=== PATIENT | female | born 1970 | race Caucasian/White ===

== ENCOUNTER 2016-09-30 10:05 | Emergency (ER) | payer BC ==
--- NOTE | 2016-09-30 10:40 | RAD ---
HISTORY: Right-sided weakness COMPARISONS: None TECHNIQUE: Multiple contiguous axial CT scans were obtained of the head without intravenous contrast. FINDINGS: HEMORRHAGE/INFARCT: There is no hemorrhage or acute infarct. MASSES/SHIFT: There is no mass or shift. EXTRA-AXIAL SPACES: There are no extra-axial fluid collections. SULCI AND VENTRICLES: The sulci and ventricles are normal in size and position for the patient's stated age. CEREBRUM: There are no focal parenchymal abnormalities. BRAINSTEM: There are no focal parenchymal abnormalities. CEREBELLUM: There are no focal parenchymal abnormalities. VESSELS: The vessels are grossly normal. PARANASAL SINUSES: The paranasal sinuses are clear. ORBITS: The orbits are unremarkable. BONES AND SOFT TISSUE: No bone or soft tissue abnormalities are noted. OTHER: None IMPRESSION: NO ACUTE INTRACRANIAL PATHOLOGY. PRELIMINARY FINDINGS WERE DISCUSSED WITH DR. MATOS IN THE EMERGENCY DEPARTMENT AT APPROXIMATELY 10:35 AM ON SEPTEMBER 30, 2016.
[2016-09-30 10:57] LABS: Hematocrit 43 % (35-47); Hemoglobin 13.9 g/dl (12.0-16.0); Mean Corpuscular HGB Conc 33 g/dl (31-36); Mean Corpuscular Hemoglobin 30 pg (27-31); Mean Corpuscular Volume 92 fL (80-97); Mean Platelet Volume 9 um3 (7.4-10.4); Red Blood Count 4.64 10^6/ul (4.0-5.4); Red Cell Distribution Width 13 % (10.5-15); White Blood Count 6.3 10^3/ul (3.5-10.8)
[2016-09-30 11:12] LABS: Albumin 4.4 g/dL (3.2-5.2); BUN/Creatinine Ratio 17.4 (8-20); Calcium 9.1 mg/dL (8.6-10.3); EGFR African American 91.8 (>60); EGFR Non-African American 71.4 (>60); Globulin 2.8 g/dL (2-4); HDL Cholesterol 58.8 mg/dL; Potassium 3.8 mmol/L (3.5-5.0); Total Bilirubin 0.5 mg/dL (0.2-1.0); Total Protein 7.2 g/dL (6.4-8.9)
[2016-09-30] MEDS ORDERED: Iohexol 350* (CONTRAST) 500 ML MDV IV ONE (11:27)
[2016-09-30 11:46] LABS: Urine Bilirubin Negative (Negative); Urine Glucose Negative (Negative); Urine Nitrite Negative (Negative)
--- NOTE | 2016-09-30 12:20 | RAD ---
HISTORY: Right upper extremity weakness COMPARISONS: Head CT dated September 30, 2016 TECHNIQUE: Multiple contiguous axial CT scans were obtained of the head and neck After the administration of nonionic intravenous contrast timed to the systemic arterial phase of contrast enhancement. Coronal and sagittal multiplanar reformations are submitted for review. Multiple 3-D maximum intensity projection reconstructions are also submitted for review. FINDINGS: CTA NECK: AORTIC ARCH: There is a normal three-vessel branching pattern of the aortic arch. There is no ostial or proximal stenosis of the cephalic great vessels. RIGHT VERTEBRAL ARTERY: The right vertebral artery is patent along its course, without stenosis. LEFT VERTEBRAL ARTERY: The left vertebral artery is patent along its course, without stenosis. DOMINANCE: The vertebral arteries are codominant. RIGHT COMMON CAROTID ARTERY: The right common carotid artery is patent. The right carotid bifurcation occurs at C4-C5 RIGHT INTERNAL CAROTID ARTERY: There is no right internal carotid artery stenosis by NASCET criteria. RIGHT EXTERNAL CAROTID ARTERY: The right external carotid artery is unremarkable. LEFT COMMON CAROTID ARTERY: The left common carotid artery is patent. The left carotid bifurcation occurs at C4-C5 LEFT INTERNAL CAROTID ARTERY: There is no left internal carotid artery stenosis by NASCET criteria. LEFT EXTERNAL CAROTID ARTERY: The left external carotid artery is unremarkable. VENOUS CIRCULATION: The venous system is unremarkable. SALIVARY GLANDS: The parotid glands, submandibular glands, sublingual glands are normal. NASAL CAVITY/NASOPHARYNX: The nasal cavity and nasopharynx are normal. ORAL CAVITY/OROPHARYNX: The oral cavity is obscured by streak artifact from dental amalgam. The visualized oral cavity and oropharynx are unremarkable. LARYNGEAL APPARATUS/HYPOPHARYNX: The laryngeal apparatus and hypopharynx are normal. UPPER AIRWAY/UPPER ESOPHAGUS: The visualized upper airway and esophagus are normal. LUNG APICES: The lung apices are clear. THYROID GLAND: The thyroid gland is normal. LYMPH NODES: There is no lymphadenopathy by size criteria. BONES AND SOFT TISSUES: There is straightening with reversal of the normal cervical lordosis CTA HEAD: INTRACRANIAL CIRCULATION: There is no aneurysm, vascular malformation, occlusion, or stenosis of the visualized intracranial circulation. The anterior communicating artery complex is clear. Bilateral posterior communicating arteries are identified. VENOUS CIRCULATION: The venous system is unremarkable. PERFUSION: There is no obvious parenchymal perfusion deficit. HEMORRHAGE/INFARCT: There is no hemorrhage or acute infarct. MASSES/SHIFT: There is no mass or shift. EXTRA-AXIAL SPACES: There are no extra-axial fluid collections. SULCI AND VENTRICLES: The sulci and ventricles are normal in size and position for the patient's stated age. CEREBRUM: There are no focal parenchymal abnormalities. BRAINSTEM: There are no focal parenchymal abnormalities. CEREBELLUM: There are no focal parenchymal abnormalities. PARANASAL SINUSES: The paranasal sinuses are clear. ORBITS: The orbits are unremarkable. BONES AND SOFT TISSUE: No bone or soft tissue abnormalities are noted. OTHER: There is no abnormal enhancement. IMPRESSION: 1. NO INTERNAL CAROTID ARTERY STENOSIS BY NASCET CRITERIA. 2. NO ANEURYSM, VASCULAR MALFORMATION, OCCLUSION, OR STENOSIS OF THE VISUALIZED INTRACRANIAL CIRCULATION. CPT II Codes: 3100F
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
[2016-09-30] MEDS ORDERED: ALPRAZolam TAB* 0.5 MG PO ONE (13:41)
[2016-09-30 14:47] VITALS: BP 126/81
--- NOTE | 2016-09-30 16:43 | ED ---
Lauren Brown Auryana, scribed for Greg Jung MD on 09/30/16 at 1019 . Neurological HPI - HPI Summary HPI Summary: 46 year old female presents with right arm weakness. Patient reports that this morning at 06:00 she had LUE weakness and couldn't tell what day it was. The weakness is now in her right arm and she is also lightheaded and has a headache. She is Gabapentin, but is not on any blood thinners. 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 - History of Current Complaint Stated Complaint: RIGHT SIDE WEAKNESS Time Seen by Provider: 09/30/16 10:15 Last Known Well Date: 09/30/16 06:00 Hx Obtained From: Patient Hx Last Menstrual Period: N/A Onset/Duration: Sudden Onset, Still Present Timing: Constant Onset Severity: Mild Current Severity: Mild Neurological Deficit Location: RUE - now, LUE - NURSE WOUND Headache Location: Diffuse (Right), Diffuse (Left) Character: Weak, Motor Weakness Associated Signs and Symptoms: Positive: Headache, Weakness, Lightheadness Similar Episode/Dx as: history of stroke 2 years ago - Allergy/Home Medications Allergies/Adverse Reactions: Allergies Allergy/AdvReac Type Severity Reaction Status Date / Time Latex Allergy Intermediate Rash, Verified 08/14/16 15:36 ITCHINESS Penicillin G Sodium Allergy Intermediate Rash Verified 08/14/16 15:36 Prednisone Allergy Anxiety Verified 08/14/16 15:36 ALL NARCOTICS Allergy Mild Headache Uncoded 08/14/16 15:36 Home Medications: Home Medications Gabapentin CAP(*) [Neurontin 300 CAP(*)] 300 mg PO QPM 09/30/16 [History Confirmed 09/30/16] Lidocaine PATCH 5%* [Lidoderm 5% Patch*] 1 patch TRANSDERM DAILY 09/30/16 [ History Confirmed 09/30/16] PMH/Surg Hx/FS Hx/Imm Hx Endocrine/Hematology History: Denies: Hx Diabetes Cardiovascular History: Reports: Hx Hypertension - UP AND DOWN R.T ANXIETY, NO MEDS Denies: Hx Pacemaker/ICD, Other Cardiovascular Problems/Disorders Respiratory History: Reports: Hx Seasonal Allergies Denies: Hx Asthma, Other Respiratory Problems/Disorders GI History: Reports: Hx Irritable Bowel Denies: Other GI Disorders History: Denies: Hx Renal Disease Musculoskeletal History: Reports: Hx Arthritis - SPINE, Hx Back Problems, Other Musculoskeletal History - Chronic Neck Pain Sensory History: Reports: Hx Contacts or Glasses - GLASSES Denies: Hx Hearing Aid Opthamlomology History: Reports: Hx Contacts or Glasses - GLASSES Neurological History: Reports: Hx Headaches, Hx Migraine, Hx Seizures, Other Neuro Impairments/Disorders - PAIN CLINIC PATIENT Psychiatric History: Reports: Hx Anxiety - NO MEDS, Hx Depression Denies: Hx Panic Disorder - Cancer History Hx Chemotherapy: No Hx Radiation Therapy: No - Surgical History Surgery Procedure, Year, and Place: D&C , TUBAL LIGATION , 2008 [facility] , BUNIONS BOTH FEET, 1999 , 2001 , , HYSTERECTOMY JULY 26 2013, HERNIA, 2010 Hx Anesthesia Reactions: Yes - N/V, MIGRAINES - Social History Occupation: Employed Full-time Lives: Alone Alcohol Use: None Alcohol Amount: 2-3 day Substance Use Type: Reports: None Smoking Status (MU): Never Smoked Tobacco Have You Smoked in the Last Year: No Review of Systems Positive: Other - lightheadedness Eyes: Negative ENT: Negative Cardiovascular: Negative Respiratory: Negative Gastrointestinal: Negative Genitourinary: Negative Musculoskeletal: Negative Skin: Negative Positive: Headache, Weakness Psychological: Normal All Other Systems Reviewed And Are Negative: Yes Physical Exam - Summary Physical Exam Summary: VITAL SIGNS: Reviewed. GENERAL: ~Patient is a well-developed and nourished female who is lying anxious in the stretcher. ~Patient is not in any acute respiratory distress. HEAD AND FACE: No signs of trauma. ~No ecchymosis, hematomas or skull depressions. No sinus tenderness. EYES: PERRLA, EOMI x 2, No injected conjunctiva, no nystagmus. No photophobia. EARS: Hearing grossly intact. Ear canals and tympanic membranes are within normal limits. MOUTH: Oropharynx within normal limits. NECK: Supple, trachea is midline, no adenopathy, no JVD, no carotid bruit, no c- spine tenderness, neck with full ROM. No meningeal signs, no Kernig's or brudzinskis signs. CHEST: Symmetric, no tenderness at palpation LUNGS: Clear to auscultation bilaterally. No wheezing or crackles. CVS: Regular rate and rhythm, S1 and S2 present, no murmurs or gallops appreciated. ABDOMEN: Soft, non-tender. No signs of distention. No rebound no guarding, and no masses palpated. Bowel sounds are normal. EXTREMITIES: FROM in all major joints, no edema, no cyanosis or clubbing. NEURO: Alert and oriented x 3. Speech is normal and follows commands. REFER TO NIH SCALE FOR REST OF NEUROLOGICAL EXAM SKIN: Dry and warm Triage Information Reviewed: Yes Vital Signs On Initial Exam: Initial Vitals BP 143/94 09/30/16 10:16 Vital Signs Reviewed: Yes Diagnostics - Vital Signs Vital Signs Temp Pulse Resp BP Pulse Ox 09/30/16 14:30 72 15 126/81 100 09/30/16 14:07 75 19 122/80 99 09/30/16 14:00 60 17 97 09/30/16 13:45 19 09/30/16 13:00 63 16 98 09/30/16 12:00 67 17 100 09/30/16 11:30 64 17 130/82 100 09/30/16 11:00 79 18 96 09/30/16 10:30 74 16 135/94 100 09/30/16 10:26 98.2 F 84 16 135/94 98 09/30/16 10:23 98.2 F 77 18 143/93 100 09/30/16 10:18 19 09/30/16 10:16 143/94 - Laboratory Lab Results: Lab Results 09/30/16 09/30/16 09/30/16 Range/Units 10:50 10:50 10:50 WBC 6.3 (3.5-10.8) 10^3/ul RBC 4.64 (4.0-5.4) 10^6/ul Hgb 13.9 (12.0-16.0) g/dl Hct 43 (35-47) % MCV 92 (80-97) fL MCH 30 (27-31) pg MCHC 33 (31-36) g/dl RDW 13 (10.5-15) % Plt Count 192 (150-450) 10^3/ul MPV 9 (7.4-10.4) um3 Neut % (Auto) 65.0 (38-83) % Lymph % (Auto) 27.4 (25-47) % [place] % (Auto) 5.6 (1-9) % Eos % (Auto) 1.2 (0-6) % Baso % (Auto) 0.8 (0-2) % Absolute Neuts (auto) 4.1 (1.5-7.7) 10^3/ul Absolute Lymphs (auto) 1.7 (1.0-4.8) 10^3/ul Absolute Monos (auto) 0.4 (0-0.8) 10^3/ul Absolute Eos (auto) 0.1 (0-0.6) 10^3/ul Absolute Basos (auto) 0 (0-0.2) 10^3/ul Absolute Nucleated RBC 0.01 10^3/ul Nucleated RBC % 0.1 INR (Anticoag Therapy) 0.86 L (0.89-1.11) APTT 27.6 (26.0-36.3) seconds Sodium 136 (133-145) mmol/L Potassium 3.8 (3.5-5.0) mmol/L Chloride 105 (101-111) mmol/L Carbon Dioxide 24 (22-32) mmol/L Anion Gap 7 (2-11) mmol/L BUN 15 (6-24) mg/dL Creatinine 0.86 (0.51-0.95) mg/dL Est GFR ( Amer) 91.8 (>60) Est GFR (Non-Af Amer) 71.4 (>60) BUN/Creatinine Ratio 17.4 (8-20) Glucose 94 (70-100) mg/dL Lactic Acid (0.5-2.0) mmol/L Calcium 9.1 (8.6-10.3) mg/dL Total Bilirubin 0.50 (0.2-1.0) mg/dL AST 19 (13-39) U/L ALT 17 (7-52) U/L Alkaline Phosphatase 23 L (34-104) U/L Troponin I 0.00 (<0.04) ng/mL Total Protein 7.2 (6.4-8.9) g/dL Albumin 4.4 (3.2-5.2) g/dL Globulin 2.8 (2-4) g/dL Albumin/Globulin Ratio 1.6 (1-3) Triglycerides 70 mg/dL Cholesterol 171 mg/dL LDL Cholesterol 98 mg/dL HDL Cholesterol 58.8 mg/dL Urine Color Urine Appearance Urine pH (5-9) Ur Specific [place] (1.010-1.030) Urine Protein (Negative) Urine Ketones (Negative) Urine Blood (Negative) Urine Nitrate (Negative) Urine Bilirubin (Negative) Urine Urobilinogen (Negative) Ur Leukocyte Esterase (Negative) Urine Glucose (Negative) Blood Type Antibody Screen 09/30/16 09/30/16 09/30/16 Range/Units 10:50 10:50 11:30 WBC (3.5-10.8) 10^3/ul RBC (4.0-5.4) 10^6/ul Hgb (12.0-16.0) g/dl Hct (35-47) % MCV (80-97) fL MCH (27-31) pg MCHC (31-36) g/dl RDW (10.5-15) % Plt Count (150-450) 10^3/ul MPV (7.4-10.4) um3 Neut % (Auto) (38-83) % Lymph % (Auto) (25-47) % [place] % (Auto) (1-9) % Eos % (Auto) (0-6) % Baso % (Auto) (0-2) % Absolute Neuts (auto) (1.5-7.7) 10^3/ul Absolute Lymphs (auto) (1.0-4.8) 10^3/ul Absolute Monos (auto) (0-0.8) 10^3/ul Absolute Eos (auto) (0-0.6) 10^3/ul Absolute Basos (auto) (0-0.2) 10^3/ul Absolute Nucleated RBC 10^3/ul Nucleated RBC % INR (Anticoag Therapy) (0.89-1.11) APTT (26.0-36.3) seconds Sodium (133-145) mmol/L Potassium (3.5-5.0) mmol/L Chloride (101-111) mmol/L Carbon Dioxide (22-32) mmol/L Anion Gap (2-11) mmol/L BUN (6-24) mg/dL Creatinine (0.51-0.95) mg/dL Est GFR ( Amer) (>60) Est GFR (Non-Af Amer) (>60) BUN/Creatinine Ratio (8-20) Glucose (70-100) mg/dL Lactic Acid 0.9 (0.5-2.0) mmol/L Calcium (8.6-10.3) mg/dL Total Bilirubin (0.2-1.0) mg/dL AST (13-39) U/L ALT (7-52) U/L Alkaline Phosphatase (34-104) U/L Troponin I (<0.04) ng/mL Total Protein (6.4-8.9) g/dL Albumin (3.2-5.2) g/dL Globulin (2-4) g/dL Albumin/Globulin Ratio (1-3) Triglycerides mg/dL Cholesterol mg/dL LDL Cholesterol mg/dL HDL Cholesterol mg/dL Urine Color Yellow Urine Appearance Clear Urine pH 5.0 (5-9) Ur Specific [place] 1.009 L (1.010-1.030) Urine Protein Negative (Negative) Urine Ketones Negative (Negative) Urine Blood Negative (Negative) Urine Nitrate Negative (Negative) Urine Bilirubin Negative (Negative) Urine Urobilinogen Negative (Negative) Ur Leukocyte Esterase Negative (Negative) Urine Glucose Negative (Negative) Blood Type A Positive Antibody Screen Negative Result Diagrams: 09/30/16 10:50 09/30/16 10:50 Lab Statement: Any lab studies that have been ordered have been reviewed, and results considered in the medical decision making process. - CT BRAIN CT CT Interpretation: No Acute Changes - IMPRESSION: NO ACUTE INTRACRANIAL PATHOLOGY. PRELIMINARY FINDINGS WERE DISCUSSED WITH DR. JUNG IN THE EMERGENCY DEPARTMENT AT APPROXIMATELY 10:35 AM ON SEPTEMBER 30, 2016. CT Interpretation Completed By: Radiologist CTA HEAD/NECK CT Interpretation: No Acute Changes - IMPRESSION: 1. NO INTERNAL CAROTID ARTERY STENOSIS BY NASCET CRITERIA. 2. NO ANEURYSM, VASCULAR MALFORMATION, OCCLUSION, OR STENOSIS OF THE VISUALIZED INTRACRANIAL CIRCULATION. CT Interpretation Completed By: Radiologist - EKG 10:12 EKG Interpretation: NSR @ 93 BPM, NO ST ELEVATION NIH Scale - NIH Scale Level of Consciousness: Alert/Keenly Responsive Ask Patient the Month and His/Her Age: Both Correct Ask Pt to Open/Close Eyes and Kosher Inspector/Release Non-Paretic Hand: Both Correctly Best Gaze (Only Horizontal Eye Movement): Normal Visual Field Testing: No Visual Loss Facial Paresis-Pt to Smile & Close Eyes or Grimace Symmetry: Normal/Symmetrical Motor Function - Right Arm: Drifts LT 10 seconds Motor Function - Left Arm: No Drift-Holds 10 Seconds Motor Function - Right Leg: No Drift-Holds 10 Seconds Motor Function - Left Leg: No Drift-Holds 10 Seconds Limb Ataxia-Must be out of Proportion to Weakness Present: Absent Sensory (Use Pinprick to Test Arms/Legs/Trunk/Face): Pinprick Less on Affected Best Language (Describe Picture, Name Items): No Aphasia Dysarthria (Read Several Words): Normal Extinction and Inattention: No Abnormality Total Score: 2 Course/Dx - Course Course Of Treatment: 46 year old female presents with right arm weakness. Patient reports that this morning at 06:00 she had LUE weakness and couldn't tell what day it was. The weakness is now in her right arm and she is also lightheaded and has a headache. She is Gabapentin, but is not on any blood thinners. 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 Assessment/Plan: Blood work WNL. UA negative. Head CT negative. Dr. Ponce came down and assessed patient and she recommended to do a Head/neck CTA. CTA HEAD/NECK IMPRESSION: 1. NO INTERNAL CAROTID ARTERY STENOSIS BY NASCET CRITERIA. 2. NO ANEURYSM, VASCULAR MALFORMATION, OCCLUSION, OR STENOSIS OF THE VISUALIZED INTRACRANIAL CIRCULATION. Dr. Ponce recommended admission and therefore I discussed physical exam and findings with Dr. Birch who accepted patient for admission. After Dr. Birch saw patient I discussed case with Dr. Ponce. They decided that she can be safely discharged home with outpatient follow up with Dr. Ponce . Patient is hemodynamically stable and A&O x3. - Diagnoses Provider Diagnoses: Headache, Paresthesia - Physician Notifications Discussed Care of Patient With: Dr. Ponce (10:50) recommended CT HEAD/NECK and possibly admission. Dr. Birch (11:25) consult in ED and make decision on if admission is appropriate or not. 13:55 - Dr. Birch- feels patient is safe to d /c home with follow up to Dr. Ponce Discharge - Discharge Plan Condition: Stable Disposition: HOME Patient Education Materials: Acute Headache (ED), Paresthesia (ED) Referrals: Yohana Ponce MD [Medical Doctor] - 2 Days The documentation as recorded by the Lauren hickman Auryana accurately reflects the service I personally performed and the decisions made by , Greg Jung MD.
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
== END 2016-09-30 15:13 | disposition home or self-care (01) ==
LOC: ED 10:05
DX: R51 Headache (principal); R20.9 Unspecified disturbances of skin sensation; R42 Dizziness and giddiness; R53.1 Weakness
CPT/HCPCS: 36415; 70450; 70496; 70498; 80053; 80061; 81003; 83605; 84484; 85025; 85610; 85730; 86850; 86900; 86901; 93005; 99284; A9270-GY; Q9967

== ENCOUNTER 2018-05-13 08:41 | Emergency (ER) | payer BC ==
[2018-05-13] MEDS ORDERED: Ketorolac INJ* 30 MG/ML 1 ML VIAL IM ONE (08:57)
[2018-05-13] MEDS ORDERED: Diazepam TAB(*) 5 MG PO ONE ×2 (08:57→10:08)
--- NOTE | 2018-05-13 08:58 | ED ---
Back Pain - HPI Summary HPI Summary: 47-year-old female presents with acute on chronic back pain today. States she went to start exercising for the first time today and felt the pain in her lower back. She denies any urinary symptoms. No fevers. No pains in legs. No numbness or tingling in the legs. She denies any saddle anesthesia. No loss of bowel or bladder. She hasn't taking anything for her pain. Due to extreme pain she could not get up. She states the pain is never this bad. She normally sees pain clinic for injection of her back. States she is allergic to most pain medication. - History of Current Complaint Chief Complaint: EDBackInjuryPain Stated Complaint: LOWER BACK PAIN Time Seen by Provider: 05/13/18 08:49 Hx Last Menstrual Period: N/A Pain Intensity: 8 - Allergies/Home Medications Allergies/Adverse Reactions: Allergies Allergy/AdvReac Type Severity Reaction Status Date / Time latex Allergy Rash And Verified 05/13/18 10:21 Itching Latex, Natural Rubber Allergy Rash And Verified 05/13/18 10:21 Itching Opioids - Morphine Analogues Allergy Headache Verified 05/13/18 10:19 Opioids-Meperidine and Allergy Headache Verified 05/13/18 10:19 Related Opioids-Methadone and Related Allergy Headache Verified 05/13/18 10:19 penicillin G Allergy Rash Verified 05/13/18 10:19 prednisone Allergy Anxiety Verified 05/13/18 10:21 ALL NARCOTICS Allergy Mild Headache Uncoded 11/17/16 12:11 PMH/Surg Hx/FS Hx/Imm Hx Endocrine/Hematology History: Denies: Hx Diabetes Cardiovascular History: Reports: Hx Hypertension - UP AND DOWN R.T ANXIETY, NO MEDS Denies: Hx Pacemaker/ICD, Other Cardiovascular Problems/Disorders Respiratory History: Reports: Hx Seasonal Allergies Denies: Hx Asthma, Other Respiratory Problems/Disorders GI History: Reports: Hx Irritable Bowel Denies: Other GI Disorders History: Denies: Hx Renal Disease Musculoskeletal History: Reports: Hx Arthritis - SPINE, Hx Back Problems, Other Musculoskeletal History - Chronic Neck Pain Sensory History: Reports: Hx Contacts or Glasses - GLASSES Denies: Hx Hearing Aid Opthamlomology History: Reports: Hx Contacts or Glasses - GLASSES Neurological History: Reports: Hx Headaches, Hx Migraine, Hx Seizures, Other Neuro Impairments/Disorders - PAIN CLINIC PATIENT Psychiatric History: Reports: Hx Anxiety - NO MEDS, Hx Depression Denies: Hx Panic Disorder - Cancer History Hx Chemotherapy: No Hx Radiation Therapy: No - Surgical History Surgery Procedure, Year, and Place: D&C , TUBAL LIGATION , 2008 [facility] , BUNIONS BOTH FEET, 1999 , 2001 , , HYSTERECTOMY JULY 26 2013, HERNIA, 2010 Hx Anesthesia Reactions: Yes - N/V, MIGRAINES Infectious Disease History: No Infectious Disease History: Denies: Traveled Outside the [place] in Last 30 Days - Family History Known Family History: Positive: Non-Contributory - Social History Alcohol Use: None Alcohol Amount: 2 x a week Substance Use Type: Reports: None Smoking Status (MU): Never Smoked Tobacco Have You Smoked in the Last Year: No Review of Systems Negative: Fever Negative: Chest Pain Negative: Shortness Of Breath Positive: Myalgia - back pain All Other Systems Reviewed And Are Negative: Yes Physical Exam Triage Information Reviewed: Yes Vital Signs On Initial Exam: Initial Vitals Temp Pulse Resp BP Pulse Ox 98.1 F 82 24 141/85 99 05/13/18 08:45 05/13/18 08:45 05/13/18 08:45 05/13/18 08:45 05/13/18 08:45 Vital Signs Reviewed: Yes Appearance: Positive: Pain Distress Skin: Positive: Warm, Dry Head/Face: Positive: Normal Head/Face Inspection Eyes: Positive: Normal, Conjunctiva Clear ENT: Positive: Pharynx normal Respiratory/Lung Sounds: Positive: Clear to Auscultation, Breath Sounds Present Cardiovascular: Positive: Normal, RRR Musculoskeletal: Positive: Other - tenderness lower back, neg SLR, good pulses, senation grossly intact Neurological: Positive: Babinski Bilateral - normal Psychiatric: Positive: Normal Diagnostics - Vital Signs Vital Signs Temp Pulse Resp BP Pulse Ox 05/13/18 08:45 98.1 F 82 24 141/85 99 - Laboratory Lab Statement: Any lab studies that have been ordered have been reviewed, and results considered in the medical decision making process. 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 FORAMINAL NARROWING OR CENTRAL CANAL STENOSIS. Re-Evaluation - Re-Evaluation First Eval Re-Evaluation Time: 10:09 Change: Improved Comment: feeling better but pain still present Second Eval Change: Improved Comment: discussed pain options and patient decided on soma Back Pain Course/Dx - Course Course Of Treatment: 47-year-old female presents with acute on chronic back pain today. States she went to start exercising for the first time today and felt the pain in her lower back. She denies any urinary symptoms. No fevers. No pains in legs. No numbness or tingling in the legs. She denies any saddle anesthesia. No loss of bowel or bladder. She hasn't taking anything for her pain. Due to extreme pain she could not get up. She states the pain is never this bad. She normally sees pain clinic for injection of her back. States she is allergic to most pain medication. on exam has tenderness lower back. neurovascular intact. feeling a little better after valium and toradol. gave another valium. will give referral to neurosurgery. told to follow up with pain clinic. discussed pain options and patient will do soma. patient understand and agrees with plan. - Diagnoses Differential Diagnosis/HQI/PQRI: Positive: Fracture, Herniated Disc, Sprain Provider Diagnoses: Back pain Discharge - Sign-Out/Discharge Documenting (check all that apply): Patient Departure - Discharge Plan Condition: Good Disposition: HOME Prescriptions: Carisoprodol TAB* [Soma TAB*] 350 mg PO TID PRN #15 tab MDD 3 PRN Reason: Pain Patient Education Materials: Back Pain (ED) Forms: *Work Release Referrals: Farhana Birch MD [Primary Care Provider] - Brian Foster MD [Medical Doctor] - Additional Instructions: Follow up with pain clinic and neurosurgery take soma three times a day take ibuprofen every 6 hours for pain Apply lidocaine one patch for 12 hours Return to ED if develop any new or worsening symptoms - Billing Disposition and Condition Condition: GOOD Disposition: Home
[2018-05-13] MEDS ORDERED: Lidocaine PATCH 5%* 1 PATCH TRANSDERM SCH (11:00)
[2018-05-13 12:44] VITALS: BP 137/94
[2018-05-13] MEDS ORDERED: Lidocaine Patch REMOVE* 1 NOTE MISC PATCH OFF SCH (21:00)
== END 2018-05-13 11:56 | disposition home or self-care (01) ==
LOC: ED 08:41
DX: M54.9 Dorsalgia, unspecified (principal); M51.37 Other intervertebral disc degeneration, lumbosacral region; Z88.0 Allergy status to penicillin; I10 Essential (primary) hypertension; G89.29 Other chronic pain
CPT/HCPCS: 72131; 96372; 99282; A9270-GY; J1885

== ENCOUNTER 2018-05-17 15:53 | Emergency (ER) | payer BC ==
[2018-05-17] MEDS ORDERED: Ketorolac INJ* 30 MG/ML 1 ML VIAL IV PUSH ONE (16:16)
[2018-05-17] MEDS ORDERED: Ondansetron INJ* 2 MG/ML VIAL IV ONE ×2 (16:17→18:31)
[2018-05-17] MEDS ORDERED: Methocarbamol* 100 MG/ML 10 ML VIAL IV ONE (16:22)
--- NOTE | 2018-05-17 16:26 | ED ---
Back Pain - HPI Summary HPI Summary: 47 year old female presents with back pain for the past 5 days. She was seen here 5 days ago and placed on Soma. She said it helped for 2 days but has since stopped working. She states she cannot take narcotics due to nausea and vomiting and migraine symptoms. She denies any fevers. She states that her back pain is now mostly on the left side of her back. States it goes to her left buttocks. Does not go down her legs. She states she is not able to ambulate due to the pain. She's been taking ibuprofen for her pain and placing lidocaine patch on the area. She states she will follow pain clinic today but they were unable to do injection for her back due to the pain. She's been using crutches to get around. She denies any numbness or tingling. pain clinic told she come here for an MRI. she denies any weakness. No loss of bowel or bladder. No saddle anesthesia. She has no medical conditions beside back pain. - History of Current Complaint Chief Complaint: EDBackInjuryPain Stated Complaint: BACK PAIN Time Seen by Provider: 05/17/18 16:02 Hx Last Menstrual Period: N/A Pain Intensity: 8 - Allergies/Home Medications Allergies/Adverse Reactions: Allergies Allergy/AdvReac Type Severity Reaction Status Date / Time ketamine Allergy Anxiety Verified 05/17/18 19:00 latex Allergy Rash And Verified 05/17/18 16:02 Itching Latex, Natural Rubber Allergy Rash And Verified 05/17/18 16:02 Itching penicillin G Allergy Rash Verified 05/17/18 16:02 prednisone Allergy Anxiety Verified 05/17/18 16:02 Opioids - Morphine Analogues AdvReac Headache Verified 05/17/18 16:02 Opioids-Meperidine and AdvReac Headache Verified 05/17/18 16:02 Related Opioids-Methadone and Related AdvReac Headache Verified 05/17/18 16:02 ALL NARCOTICS AdvReac Mild Headache Uncoded 05/17/18 16:02 PMH/Surg Hx/FS Hx/Imm Hx Endocrine/Hematology History: Denies: Hx Diabetes Cardiovascular History: Reports: Hx Hypertension - UP AND DOWN R.T ANXIETY, NO MEDS Denies: Hx Pacemaker/ICD, Other Cardiovascular Problems/Disorders Respiratory History: Reports: Hx Seasonal Allergies Denies: Hx Asthma, Other Respiratory Problems/Disorders GI History: Reports: Hx Irritable Bowel Denies: Other GI Disorders History: Denies: Hx Renal Disease Musculoskeletal History: Reports: Hx Arthritis - SPINE, Hx Back Problems, Other Musculoskeletal History - Chronic Neck Pain Sensory History: Reports: Hx Contacts or Glasses - GLASSES Denies: Hx Hearing Aid Opthamlomology History: Reports: Hx Contacts or Glasses - GLASSES Neurological History: Reports: Hx Headaches, Hx Migraine, Hx Seizures, Other Neuro Impairments/Disorders - PAIN CLINIC PATIENT Psychiatric History: Reports: Hx Anxiety - NO MEDS, Hx Depression Denies: Hx Panic Disorder - Cancer History Hx Chemotherapy: No Hx Radiation Therapy: No - Surgical History Surgery Procedure, Year, and Place: D&C , TUBAL LIGATION , 2008 [facility] , BUNIONS BOTH FEET, 1999 , 2001 , , HYSTERECTOMY JULY 26 2013, HERNIA, 2010 Hx Anesthesia Reactions: Yes - N/V, MIGRAINES Infectious Disease History: No Infectious Disease History: Denies: Traveled Outside the [place] in Last 30 Days - Family History Known Family History: Positive: Non-Contributory - Social History Alcohol Use: None Alcohol Amount: 2 x a week Substance Use Type: Reports: None Smoking Status (MU): Never Smoked Tobacco Have You Smoked in the Last Year: No Review of Systems Negative: Fever Negative: Chest Pain Negative: Shortness Of Breath Positive: Myalgia - back pain All Other Systems Reviewed And Are Negative: Yes Physical Exam Triage Information Reviewed: Yes Vital Signs On Initial Exam: Initial Vitals Temp Pulse Resp BP Pulse Ox 98.1 F 81 20 141/102 100 05/17/18 16:01 05/17/18 16:01 05/17/18 16:01 05/17/18 16:01 05/17/18 16:01 Vital Signs Reviewed: Yes Appearance: Positive: Pain Distress Skin: Positive: Warm, Dry Head/Face: Positive: Normal Head/Face Inspection Eyes: Positive: Normal, Conjunctiva Clear ENT: Positive: Pharynx normal Respiratory/Lung Sounds: Positive: Clear to Auscultation, Breath Sounds Present Cardiovascular: Positive: Normal, RRR Abdomen Description: Positive: Nontender, Soft Bowel Sounds: Positive: Present Musculoskeletal: Positive: Limited @ - back, Other - tenderness lower back, pos SLR, good pulses, sensation grossly intact lower leg Neurological: Positive: Reflexes Intact - patella, Babinski Bilateral - normal. Negative: Normal Gait - unable to ambulate Psychiatric: Positive: Normal Diagnostics - Vital Signs Vital Signs Temp Pulse Resp BP Pulse Ox 05/17/18 16:01 98.1 F 81 20 141/102 100 - Laboratory Result Diagrams: 05/17/18 15:51 05/17/18 15:51 Lab Statement: Any lab studies that have been ordered have been reviewed, and results considered in the medical decision making process. - Additional Comments Diagnostic Additional Comments: MRI IMPRESSION: 1. No acute findings the lumbar spine. 2. Incidentally noted nonspecific 1.8 cm T2 hyperintense lesion anterior to the right aspect of the sacrum which could possibly represent cystic lesion related to the right adnexal structures. Re-Evaluation - Re-Evaluation First Eval Re-Evaluation Time: 18:40 Comment: ketamine being given Second Eval Re-Evaluation Time: 19:01 Comment: states does not like how ketamine make feels and refuses other meds Third Eval Re-Evaluation Time: 19:29 Comment: does not want any other meds. patient states want to go, using crutches to get around at home. Fourth Eval Re-Evaluation Time: 20:31 Change: Improved Comment: pain better after ketamine, ambulated in the bathroom. discussed will send home with valium instead of soma. Back Pain Course/Dx - Course Course Of Treatment: 47 year old female presents with back pain for the past 5 days. she states she reached down and stood up and the pain started. states has not been able to ambulate due to the pain. no weakness. no numbness or tingling. no loss of bowel or blader or saddle anasethesia. no urinary symptoms. On exam tenderness over the left lower side. Positive straight leg raise. Sensation grossly intact. Reflexes are intact. unable to ambulate due to pain. wbc normal. crp normal. discussed case with dr shen and patient and will try low dose ketamine for pain. MRI no acute findings. patient did like how ketamine made her feel. patient did have relief with the ketamine though. patient was able to ambulate to bathroom with assitance. discussed will try valium for pain. will have follow up with pain clinic. patient understand and agrees with plan. - Diagnoses Differential Diagnosis/HQI/PQRI: Positive: Fracture, Herniated Disc, Strain Provider Diagnoses: Back pain Discharge - Sign-Out/Discharge Documenting (check all that apply): Patient Departure - Discharge Plan Condition: Good Disposition: HOME Prescriptions: Diazepam TAB(*) [Valium TAB(*)] 5 mg PO TID PRN #12 tab MDD 3 PRN Reason: Pain Patient Education Materials: Low Back Strain (ED) Forms: *Work Release Referrals: Farhana Birch MD [Primary Care Provider] - Additional Instructions: take valium three times a day as needed for pain continue ibuprofen follow up with pain clinic Return to ED if develop any new or worsening symptoms - Billing Disposition and Condition Condition: GOOD Disposition: Home
[2018-05-17 16:54] LABS: ABS Basophils 0 10^3/ul (0-0.2); ABS Eosinophils 0.1 10^3/ul (0-0.6); ABS Lymphocytes 1.3 10^3/ul (1.0-4.8); ABS Monocytes 0.3 10^3/ul (0-0.8); ABS Neutrophils 3.4 10^3/ul (1.5-7.7); ABS Nucleated RBC 0 10^3/ul; Eosinophil % 1.9 %; Hematocrit 39 % (35-47); Hemoglobin 13.1 g/dl (12.0-16.0); Mean Corpuscular HGB Conc 34 g/dl (31-36); Mean Corpuscular Hemoglobin 31 pg (27-31); Mean Corpuscular Volume 91 fL (80-97); Mean Platelet Volume 8.3 fL (7.4-10.4); Nucleated Red Blood Cells % 0; Platelet Count 180 10^3/ul (150-450); Red Blood Count 4.27 10^6/ul (4.00-5.40); Red Cell Distribution Width 12 % (10.5-15); White Blood Count 5.1 10^3/ul (3.5-10.8)
[2018-05-17 17:21] LABS: ALT 10 U/L (7-52); AST 12 U/L (13-39); Albumin 4.3 g/dL (3.2-5.2); Albumin/Globulin Ratio 2.2 (1-3); Alkaline Phosphatase 21 U/L (34-104); Anion Gap 4 mmol/L (2-11); BUN/Creatinine Ratio 15.7 (8-20); Blood Urea Nitrogen 13 mg/dL (6-24); C Reactive Protein < 1.00 mg/L (<8.01); CO2 Carbon Dioxide 25 mmol/L (22-32); Calcium 9.1 mg/dL (8.6-10.3); Chloride 108 mmol/L (101-111); Glucose 96 mg/dL (70-100); Sodium 137 mmol/L (135-145); Total Protein 6.3 g/dL (6.4-8.9)
[2018-05-17] MEDS ORDERED: KETAMINE HCL* 50 MG/ML 10 ML VIAL IV ONE (17:33)
[2018-05-17] MEDS ORDERED: Dexamethasone IV* 4 MG/ML 1 ML (4 MG) IV SLOW PU ONE (18:54)
[2018-05-17 20:48] VITALS: BP 147/96
== END 2018-05-17 20:47 | disposition home or self-care (01) ==
LOC: ED 15:53
DX: M54.5 Low back pain (principal); I10 Essential (primary) hypertension; F32.9 Major depressive disorder, single episode, unspecified; F41.9 Anxiety disorder, unspecified
CPT/HCPCS: 36415; 72148; 80053; 85025; 86140; 99282; 99283; J1885; J2405; J2800